=== PATIENT | female | born 1940 | race Two or more races ===

== ENCOUNTER 2023-03-10 00:09 | Emergency (ER) | payer OTHER ==
[~2023-03-10] VITALS: Ht 157.5 cm; Wt 62.6 kg
[~2023-03-10 00:09] MED LIST: ANAPROX275 MG PO; CALTRATE-600/VI1 TA1 PO; COZAAR25 MG; ECOTRIN81 MG PO; GRAVIOLA PO; LIPOFLAVOVIT CA1 TAB PO; PRAVASTATIN SOD40 MG PO; SYNTHROID75 MCG PO; TENORMIN50 M1 PO; VITAMIN D5000 UNIT PO
[2023-03-10] MEDS ORDERED: TOPROL XL50 M1 (00:25)
[2023-03-10] MEDS ORDERED: XARELTO10 MG (00:26)
[2023-03-10] MEDS ORDERED: CRESTOR20 MG (00:26)
[2023-03-10] MEDS ORDERED: LASIX20 MG (00:27)
[2023-03-10] MEDS ORDERED: CARDURA XL4 MG (00:27)
[2023-03-10] MEDS ORDERED: DOLOGESIC-DF 51 EACH PO ×2 (04:29)
[2023-03-10] MEDS ORDERED: CIPRO500 MG PO (04:29)
== END 2023-03-10 04:34 | disposition home or self-care (01) ==
LOC: ER 00:09
DX: S05.11XA Contusion of eyeball and orbital tissues, right eye, initial encounter (principal); S40.011A Contusion of right shoulder, initial encounter; W18.39XA Other fall on same level, initial encounter; Y93.89 Activity, other specified; Y92.018 Other place in single-family (private) house as the place of occurrence of the external cause; Y99.9 Unspecified external cause status; I10 Essential (primary) hypertension; E03.9 Hypothyroidism, unspecified; Z88.0 Allergy status to penicillin; Z88.8 Allergy status to other drugs, medicaments and biological substances